=== PATIENT | female | born 1995 | race African-American/Black ===

== ENCOUNTER 2016-09-15 10:04 | Emergency (ER) | payer OTHER ==
[~2016-09-15] VITALS: Ht 167.6 cm; Wt 70.0 kg
[~2016-09-15 10:04] MED LIST: ALBU6.7H INH; BENZ1CAP34 PO
[2016-09-15 10:07] VITALS: BP 119/77; PULSE 94; RESP 20; TEMP 98; O2SAT 100
--- NOTE | 2016-09-15 10:53 | PD ---
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 Patient states that she had the Mirena placed 1 month ago. Her last menstrual cycle ended last week. She states that today after a bowel movement she experienced lower abdominal pain and sharp pains in her vagina. States she is in a monogamous sexual relationship with her . Denies any vaginal discharge or bleeding. No trauma. No nausea, vomiting, or diarrhea. No other symptoms reported this time. PFSH Past Medical History ADHD: No Asthma: Yes Bipolar Disorder: Yes Depression: Yes Cancer: No Cardiovascular Problems: No Diabetes: No Diminished Hearing: No Psychiatric: Yes (BIPOLAR, DEPRESSION) Respiratory: Yes (ASTHMA) Immunizations Current: Yes Migraines: Yes (3X/MOS---GO TO SLEEP) Seizures: No Thyroid Disease: No Ulcer: No LMP: 09/08/16 Menopausal: No : 1 Para: 1 Miscarriage: 0 : 0 Past Surgical History Abdominal Surgery: Yes (ABDOMINAL HERNIA REPAIR) Appendectomy: No Section: Yes Cholecystectomy: No Social History Alcohol Use: No Tobacco Use: No Substance Use: No Allergies-Medications (Allergen,Severity, Reaction): Coded Allergies: Iodine (Verified Allergy, Severe, 09/15/16) Milk (Verified Allergy, Severe, GAS NAUSEA, 09/15/16) Reported Meds & Prescriptions Reported Meds & Active Scripts Active Benzonatate 200 Mg Cap 200 Mg PO TID PRN Reported Proventil Hfa 6.7 GM Inh (Albuterol Sulfate) 90 Mcg/Act Aer 2 Puff INH Q4-6H PRN Review of Systems Except as stated in HPI: all other systems reviewed are Neg Physical Exam Narrative GENERAL: Well-nourished female patient, in no acute distress SKIN: Warm and dry. HEAD: Atraumatic. Normocephalic. EYES: Pupils equal and round. No scleral icterus. No injection or drainage. ENT: No nasal bleeding or discharge. Mucous membranes pink and moist. NECK: Trachea midline. No JVD. CARDIOVASCULAR: Regular rate and rhythm. No murmur appreciated. RESPIRATORY: No accessory muscle use. Clear to auscultation. Breath sounds equal bilaterally. GASTROINTESTINAL: Abdomen soft, nondistended. Suprapubic tenderness to palpation. Hepatic and splenic margins not palpable. MUSCULOSKELETAL: No obvious deformities. No clubbing. No cyanosis. No edema. NEUROLOGICAL: Awake and alert. No obvious cranial nerve deficits. Motor grossly within normal limits. Normal speech. PSYCHIATRIC: Appropriate mood and affect; insight and judgment normal. Data Data Last Documented VS Vital Signs Date Time Temp Pulse Resp B/P Pulse Ox O2 Delivery O2 Flow Rate FiO2 09/15/16 10:07 98.0 94 20 119/77 100 Room Air Orders Urinalysis - C+S If Indicated (09/15/16 10:51) Ed Urine Pregnancytest Poc (09/15/16 10:51) Labs Laboratory Tests Test 09/15/16 10:55 Urine Color YELLOW Urine Turbidity HAZY Urine pH 7.0 Urine Specific [place] 1.025 Urine Protein TRACE mg/dL Urine Glucose (UA) NEG mg/dL Urine Ketones NEG mg/dL Urine Occult Blood TRACE Urine Nitrite NEG Urine Bilirubin NEG Urine Urobilinogen LESS THAN 2.0 MG/DL Urine Leukocyte Esterase SMALL Urine RBC 8 /hpf Urine WBC 4 /hpf Urine Squamous Epithelial 14 /hpf Cells Urine Mucus MOD /lpf Microscopic Urinalysis Comment CULT NOT INDICATED MDM Medical Decision Making Medical Screen Exam Complete: Yes Emergency Medical Condition: Yes Medical Record Reviewed: Yes Differential Diagnosis UTI versus STD versus PID Narrative Course 21-year-old female presents to the emergency department for evaluation of lower pelvic pain. Patient appears overall well and without distress. Workup is initiated in triage. Once a bed becomes available, patient will be transferred and care assumed by that provider Diagnosis Primary Impression: Abdominal pain Disposition: 07 AGAINST MEDICAL ADVICE Condition: Stable Lesly Mejía Sep 15, 2016 10:53
[2016-09-15 11:12] LABS: BLOOD, URINE TRACE (NEG); GLUCOSE,URINE NEG (NEG); KETONE, URINE NEG (NEG); MUCUS URINE MOD /lpf (OCC); NITRITE,URINE NEG (NEG); SQUAMOUS EPITHELIAL CELL URINE 14 /hpf (0-5); URINE COLOR YELLOW (YELLW/STRAW)
[2016-09-15 11:13] LABS: COMMENT (UR) CULT NOT INDICATED; CULTURE IF INDICATED CULT NOT INDICATED
== END 2016-09-15 12:14 | disposition left against medical advice (07) ==
LOC: NETRI 10:04
DX: R10.2 Pelvic and perineal pain (principal); Z97.5 Presence of (intrauterine) contraceptive device
CPT/HCPCS: 81001; 84703; 99283

== ENCOUNTER 2016-09-16 15:38 | Observation (INO) | payer OTHER ==
[~2016-09-16] VITALS: Ht 167.6 cm; Wt 71.0 kg
[2016-09-16 15:41] VITALS: BP 131/87; PULSE 82; RESP 12; TEMP 98.3; O2SAT 99
--- NOTE | 2016-09-16 16:17 | PD ---
HPI Chief Complaint: Abdominal Pain Time Seen by Provider: 16:17 Travel History International Travel<30 days: No Contact w/Intl Traveler<30days: No Traveled to known affect area: No History of Present Illness HPI 21-year-old female presents to emergency department for the second day in a row for evaluation of lower abdominal pain, mostly on the right lower moderate but extends across the lower abdomen. Patient was concerned yesterday that this may have to do with her Mirena. She states it was placed at the end of July and she began having pain yesterday morning. Urine and ultrasound was ordered but patient left AGAINST MEDICAL ADVICE prior to her ultrasound a bit being completed. She went to her DIESEL ENGINE FITTER who states that the Mirena per her report is in place. She then went to [facility] and was told that everything "checked out" but if things worsen to return to the hospital 12 hours. She states she was unable to go back to finish because she had to drop her kids often [place] so she came to [place] today. She states pain has worsened and is greater on the right lower quadrant. Nausea without vomiting. No diarrhea. States she has not had a bowel movement since yesterday. No urinary symptoms. No vaginal discharge or bleeding. No other symptoms to report. PFSH Past Medical History ADHD: No Asthma: Yes Bipolar Disorder: Yes Depression: Yes Cancer: No Cardiovascular Problems: No Diabetes: No Diminished Hearing: No Psychiatric: Yes (BIPOLAR, DEPRESSION) Respiratory: Yes (ASTHMA) Immunizations Current: Yes Migraines: Yes (3X/MOS---GO TO SLEEP) Seizures: No Thyroid Disease: No Ulcer: No ?: Not LMP: 08/29/15 Menopausal: No : 1 Para: 1 Miscarriage: 0 : 0 Past Surgical History Abdominal Surgery: Yes (ABDOMINAL HERNIA REPAIR) Appendectomy: No Section: Yes Cholecystectomy: No Social History Alcohol Use: No Tobacco Use: No Substance Use: No Allergies-Medications (Allergen,Severity, Reaction): Coded Allergies: Iodine (Verified Allergy, Severe, 09/16/16) Milk (Verified Allergy, Severe, GAS NAUSEA, 09/16/16) Reported Meds & Prescriptions Reported Meds & Active Scripts Active Reported Proventil Hfa 6.7 GM Inh (Albuterol Sulfate) 90 Mcg/Act Aer 2 Puff INH Q4-6H PRN Review of Systems Except as stated in HPI: all other systems reviewed are Neg Physical Exam Narrative GENERAL: Well-nourished female patient, in no acute distress SKIN: Warm and dry. HEAD: Atraumatic. Normocephalic. EYES: Pupils equal and round. No scleral icterus. No injection or drainage. ENT: No nasal bleeding or discharge. Mucous membranes pink and moist. NECK: Trachea midline. No JVD. CARDIOVASCULAR: Regular rate and rhythm. No murmur appreciated. RESPIRATORY: No accessory muscle use. Clear to auscultation. Breath sounds equal bilaterally. GASTROINTESTINAL: Abdomen soft, suprapubic and right lower quadrant tenderness to palpation. No rebound tenderness. No guarding. Hepatic and splenic margins not palpable. MUSCULOSKELETAL: No obvious deformities. No clubbing. No cyanosis. No edema. NEUROLOGICAL: Awake and alert. No obvious cranial nerve deficits. Motor grossly within normal limits. Normal speech. PSYCHIATRIC: Appropriate mood and affect; insight and judgment normal. Data Data Last Documented VS Vital Signs Date Time Temp Pulse Resp B/P Pulse Ox O2 Delivery O2 Flow Rate FiO2 09/16/16 17:17 72 17 117/77 100 Room Air 09/16/16 15:41 98.3 Orders Basic Metabolic Panel (Bmp) (09/16/16 16:17) Complete Blood Count With Diff (09/16/16 16:17) Prothrombin Time / Inr (Pt) (09/16/16 16:17) Act Partial Throm Time (Ptt) (09/16/16 16:17) Urinalysis - C+S If Indicated (09/16/16 16:17) Ed Urine Pregnancytest Poc (09/16/16 16:17) Gc And Chlamydia Pcr (09/16/16 16:42) Urine Culture (09/16/16 16:38) Oral Contrast - Adult (09/16/16 17:50) Ct Abd/Pel W/O Iv Contrast (09/16/16 17:56) Diatrizoate Liq ( Gastroview Liq) (09/16/16 18:11) Labs Laboratory Tests Test 09/16/16 16:38 White Blood Count 5.0 TH/MM3 Red Blood Count 3.80 MIL/MM3 Hemoglobin 8.1 GM/DL Hematocrit 26.0 % Mean Corpuscular Volume 68.4 FL Mean Corpuscular Hemoglobin 21.4 PG Mean Corpuscular Hemoglobin 31.4 % Concent Red Cell Distribution Width 18.8 % Platelet Count 524 TH/MM3 Mean Platelet Volume 8.2 FL Neutrophils (%) (Auto) 46.6 % Lymphocytes (%) (Auto) 40.2 % Monocytes (%) (Auto) 10.5 % Eosinophils (%) (Auto) 1.5 % Basophils (%) (Auto) 1.2 % Neutrophils # (Auto) 2.3 TH/MM3 Lymphocytes # (Auto) 2.0 TH/MM3 Monocytes # (Auto) 0.5 TH/MM3 Eosinophils # (Auto) 0.1 TH/MM3 Basophils # (Auto) 0.1 TH/MM3 CBC Comment AUTO DIFF Differential Comment AUTO DIFF CONFIRMED Platelet Estimate HIGH Platelet Morphology Comment NORMAL Prothrombin Time 10.9 SEC Prothromb Time International 1.0 RATIO Ratio Activated Partial 27.9 SEC Thromboplast Time Urine Color YELLOW Urine Turbidity HAZY Urine pH 6.0 Urine Specific [place] 1.021 Urine Protein NEG mg/dL Urine Glucose (UA) NEG mg/dL Urine Ketones 40 mg/dL Urine Occult Blood TRACE Urine Nitrite NEG Urine Bilirubin NEG Urine Urobilinogen LESS THAN 2.0 MG/DL Urine Leukocyte Esterase MOD Urine RBC 1 /hpf Urine WBC 15 /hpf Urine Squamous Epithelial 6 /hpf Cells Microscopic Urinalysis Comment CULTURE INDICATED Sodium Level 142 MEQ/L Potassium Level 3.4 MEQ/L Chloride Level 110 MEQ/L Carbon Dioxide Level 23.1 MEQ/L Anion Gap 9 MEQ/L Blood Urea Nitrogen 13 MG/DL Creatinine 0.66 MG/DL Estimat Glomerular Filtration 136 ML/MIN Rate Random Glucose 75 MG/DL Calcium Level 8.3 MG/DL Chlamydia trachomatis DNA NOT DETECTED (PCR) Neisseria gonorrhoeae DNA NOT DETECTED (PCR) MDM Medical Decision Making Medical Screen Exam Complete: Yes Emergency Medical Condition: Yes Medical Record Reviewed: Yes Differential Diagnosis UTI versus PID versus appendicitis versus colitis Narrative Course 21-year-old female presents to emergency department for evaluation of abdominal pain. Workup was initiated in triage. Once a medical bed becomes available, patient will be transferred and care assumed by that provider. Condition: Stable MejíaLesly ricci SHA Sep 16, 2016 16:17
[2016-09-16 17:00] LABS: AUTOMATED NEUTROPHIL # 2.3 TH/MM3 (1.8-7.7); BASOPHIL # 0.1 TH/MM3 (0-0.2); BASOPHIL % 1.2 % (0.0-2.0); EOSINOPHIL # 0.1 TH/MM3 (0-0.4); EOSINOPHIL % 1.5 % (0.0-4.0); LYMPH % 40.2 % (9.0-44.0); MEAN CELL VOLUME 68.4 FL (80.0-100.0); MEAN CORPUSCULAR HEMOGLOBIN 21.4 PG (27.0-34.0); MEAN CORPUSCULAR HGB CONC 31.4 % (32.0-36.0); MONO % 10.5 % (0.0-8.0); NEUT % 46.6 % (16.0-70.0); PLATELET COUNT 524 TH/MM3 (150-450); RED CELL DISTRIBUTION WIDTH 18.8 % (11.6-17.2)
[2016-09-16 17:01] LABS: HEMO FLAGS AUTO DIFF
[2016-09-16 17:04] LABS: BLOOD, URINE TRACE (NEG); COMMENT (UR) CULTURE INDICATED; CULTURE IF INDICATED CULTURE INDICATED; GLUCOSE,URINE NEG (NEG); KETONE, URINE 40 mg/dL (NEG); NITRITE,URINE NEG (NEG); SQUAMOUS EPITHELIAL CELL URINE 6 /hpf (0-5); URINE COLOR YELLOW (YELLW/STRAW)
[2016-09-16 17:10] LABS: APTT (PATIENT) 27.9 SEC (24.3-30.1); PROTHROMBIN TIME - PATIENT 10.9 SEC (9.8-11.6)
[2016-09-16 17:17] VITALS: BP 117/77; PULSE 72; RESP 17; O2SAT 100
[2016-09-16 17:21] LABS: BICARBONATE 23.1 MEQ/L (21.0-32.0); POTASSIUM 3.4 MEQ/L (3.5-5.1)
[2016-09-16 17:35] LABS: PLATELET ESTIMATE SMEAR HIGH (NORMAL); PLATELET MORPHOLOGY NORMAL (NORMAL); SCAN/DIFF AUTO DIFF CONFIRMED
--- NOTE | 2016-09-16 17:39 | PD ---
HPI Chief Complaint: Abdominal Pain Time Seen by Provider: 17:17 Travel History International Travel<30 days: No Contact w/Intl Traveler<30days: No Traveled to known affect area: No History of Present Illness HPI 21-year-old female complains of right low quadrant abdominal pain. Patient states that the pain started yesterday after a bowel movement. Patient states the pain is stabbing pain when standing and dental pain when she lying down. Patient states the pain has been persistent since yesterday. Patient was seen at the emergency room yesterday. UA was done and was negative. Patient left AMA. Patient was seen by her park maintenance technician yesterday and was advised that the pain does not come from the pelvic problem. Patient was seen at [facility] emergency room in [place] yesterday and has CT scan of the abdomen and pelvis done. The CT abdomen and pelvis was negative. Patient was advised to return in 12 hours for recheck and repeat CT if necessary. Patient's unable to go to [facility] today and came to [place] instead. Patient states the pain is localized to the right quadrant of the abdomen. Patient also states that she has some mild pain around the periumbilical area. Patient denies any pain radiation. Patient denies any fever chills. Patient Has nausea but no vomiting. Patient denies any dysuria or frequency. Patient denies any vaginal discharge or bleeding. On a scale of 1-10 the pain is a 7. PFSH Past Medical History ADHD: No Asthma: Yes Bipolar Disorder: Yes Depression: Yes Cancer: No Cardiovascular Problems: No Diabetes: No Diminished Hearing: No Psychiatric: Yes (BIPOLAR, DEPRESSION) Respiratory: Yes (ASTHMA) Immunizations Current: Yes Migraines: Yes (3X/MOS---GO TO SLEEP) Seizures: No Thyroid Disease: No Ulcer: No Tetanus Vaccination: Unknown Influenza Vaccination: No ?: Not LMP: 08/29/16 Menopausal: No : 3 Para: 3 Miscarriage: 1 : 0 Past Surgical History Abdominal Surgery: Yes (ABDOMINAL HERNIA REPAIR) Appendectomy: No Section: Yes (X1) Cholecystectomy: No Social History Alcohol Use: No (EVERY OTHER WEEKEND) Tobacco Use: No Substance Use: No Allergies-Medications (Allergen,Severity, Reaction): Coded Allergies: Iodine (Verified Allergy, Severe, 09/16/16) Milk (Verified Allergy, Severe, GAS NAUSEA, 09/16/16) Reported Meds & Prescriptions Reported Meds & Active Scripts Active Reported Proventil Hfa 6.7 GM Inh (Albuterol Sulfate) 90 Mcg/Act Aer 2 Puff INH Q4-6H PRN Review of Systems General / Constitutional: No: Fever Eyes: No: Visual changes HENT: No: Headaches Cardiovascular: No: Chest Pain or Discomfort Respiratory: No: Shortness of Breath Gastrointestinal: Positive: Nausea, Abdominal Pain Genitourinary: No: Dysuria Musculoskeletal: No: Pain Skin: No Rash Neurologic: No: Weakness Psychiatric: No: Depression Endocrine: No: Polydipsia Hematologic/Lymphatic: No: Easy Bruising Physical Exam Narrative GENERAL: Well-nourished, well-developed patient. SKIN: Warm and dry. HEAD: Normocephalic. EYES: No scleral icterus. No injection or drainage. NECK: Supple, trachea midline. No JVD or lymphadenopathy. CARDIOVASCULAR: Regular rate and rhythm without murmurs, gallops, or rubs. RESPIRATORY: Breath sounds equal bilaterally. No accessory muscle use. GASTROINTESTINAL: Abdomen soft, nondistended. Patient has moderate tenderness periumbilical area and right low quadrant of the abdomen. No rebound tenderness. No mass. MUSCULOSKELETAL: No cyanosis, or edema. BACK: Nontender without obvious deformity. No CVA tenderness. Data Data Last Documented VS Vital Signs Date Time Temp Pulse Resp B/P Pulse Ox O2 Delivery O2 Flow Rate FiO2 09/16/16 20:01 76 16 127/84 100 Room Air 09/16/16 15:41 98.3 Orders Basic Metabolic Panel (Bmp) (09/16/16 16:17) Complete Blood Count With Diff (09/16/16 16:17) Prothrombin Time / Inr (Pt) (09/16/16 16:17) Act Partial Throm Time (Ptt) (09/16/16 16:17) Urinalysis - C+S If Indicated (09/16/16 16:17) Ed Urine Pregnancytest Poc (09/16/16 16:17) Gc And Chlamydia Pcr (09/16/16 16:42) Urine Culture (09/16/16 16:38) Oral Contrast - Adult (09/16/16 17:50) Ct Abd/Pel W/O Iv Contrast (09/16/16 17:56) Diatrizoate Liq ( Gastroview Liq) (09/16/16 18:11) Morphine Inj (Morphine Inj) (09/16/16 20:15) Ondansetron Inj (Zofran Inj) (09/16/16 20:15) Labs Laboratory Tests Test 09/16/16 16:38 White Blood Count 5.0 TH/MM3 Red Blood Count 3.80 MIL/MM3 Hemoglobin 8.1 GM/DL Hematocrit 26.0 % Mean Corpuscular Volume 68.4 FL Mean Corpuscular Hemoglobin 21.4 PG Mean Corpuscular Hemoglobin 31.4 % Concent Red Cell Distribution Width 18.8 % Platelet Count 524 TH/MM3 Mean Platelet Volume 8.2 FL Neutrophils (%) (Auto) 46.6 % Lymphocytes (%) (Auto) 40.2 % Monocytes (%) (Auto) 10.5 % Eosinophils (%) (Auto) 1.5 % Basophils (%) (Auto) 1.2 % Neutrophils # (Auto) 2.3 TH/MM3 Lymphocytes # (Auto) 2.0 TH/MM3 Monocytes # (Auto) 0.5 TH/MM3 Eosinophils # (Auto) 0.1 TH/MM3 Basophils # (Auto) 0.1 TH/MM3 CBC Comment AUTO DIFF Differential Comment AUTO DIFF CONFIRMED Platelet Estimate HIGH Platelet Morphology Comment NORMAL Prothrombin Time 10.9 SEC Prothromb Time International 1.0 RATIO Ratio Activated Partial 27.9 SEC Thromboplast Time Urine Color YELLOW Urine Turbidity HAZY Urine pH 6.0 Urine Specific [place] 1.021 Urine Protein NEG mg/dL Urine Glucose (UA) NEG mg/dL Urine Ketones 40 mg/dL Urine Occult Blood TRACE Urine Nitrite NEG Urine Bilirubin NEG Urine Urobilinogen LESS THAN 2.0 MG/DL Urine Leukocyte Esterase MOD Urine RBC 1 /hpf Urine WBC 15 /hpf Urine Squamous Epithelial 6 /hpf Cells Microscopic Urinalysis Comment CULTURE INDICATED Sodium Level 142 MEQ/L Potassium Level 3.4 MEQ/L Chloride Level 110 MEQ/L Carbon Dioxide Level 23.1 MEQ/L Anion Gap 9 MEQ/L Blood Urea Nitrogen 13 MG/DL Creatinine 0.66 MG/DL Estimat Glomerular Filtration 136 ML/MIN Rate Random Glucose 75 MG/DL Calcium Level 8.3 MG/DL Chlamydia trachomatis DNA NOT DETECTED (PCR) Neisseria gonorrhoeae DNA NOT DETECTED (PCR) MDM Medical Decision Making Medical Screen Exam Complete: Yes Emergency Medical Condition: Yes Interpretation(s) Last Impressions Abdomen/Pelvis CT 09/16/16 2042 Signed Impressions: Service Date/Time: Friday, September 16, 2016 19:35 - CONCLUSION: 1. Small amount of free fluid in the cul-de-sac. 2. IUD. 3. Unable to visualize the appendix. Art Agrawal Jr., MD 2054 PM. CBC WBC 5.0. Hemoglobin 8.1 hematocrit 26.0. MCV 60.4. Potassium 3.4. UA positive for WBC. GC chlamydia PCR negative. Differential Diagnosis Differential diagnosis including UTI, pyelonephritis, nephrolithiasis, colitis, appendicitis, ovarian cyst, ovarian torsion, ruptured ovarian cyst. Narrative Course 21-year-old female with periumbilical and right lower quadrant abdominal pain. Diagnosis Primary Impression: Abdominal pain Qualified Code: R10.31 - Right lower quadrant abdominal pain Additional Impression: UTI (urinary tract infection) Qualified Code: N30.00 - Acute cystitis without hematuria Shaan Ferrera MD Sep 16, 2016 17:39
[2016-09-16] MEDS ORDERED: DIATRIZOATE MEGLUM/DIATRIZOATE SOD 9 ML CUP ONE (18:11)
[2016-09-16 19:32] LABS: CHLAMYDIA PCR NOT DETECTED (NOT DETECT); NEISSERIA PCR NOT DETECTED (NOT DETECT)
[2016-09-16 20:01] VITALS: BP 127/84; PULSE 76; RESP 16; O2SAT 100
--- NOTE | 2016-09-16 20:12 | RADRPT ---
EXAM DATE/TIME: 09/16/2016 19:35 [facility] COMPARISON: No previous studies available for comparison. INDICATIONS : Right lower qaudrant pain. ORAL CONTRAST: Partial prescribed oral contrast ingested. RADIATION DOSE: 5.10 CTDIvol (mGy) MEDICAL HISTORY : Asthma SURGICAL HISTORY : section. Hernia ENCOUNTER: Initial ACUITY: 1 day PAIN SCALE: 6/10 LOCATION: Right lower quadrant TECHNIQUE: Volumetric scanning of the abdomen and pelvis was performed. Using automated exposure control and ad justment of the mA and/or kV according to patient size, radiation dose was kept as low as reasonably achievable to obtain optimal diagnostic quality images. FINDINGS: LOWER LUNGS: The visualized lower lungs are clear. LIVER: Homogeneous density without lesion. There is no dilation of the biliary tree. No calcified gallston es. SPLEEN: Normal size without lesion. PANCREAS: Within normal limits. KIDNEYS: Normal in size and shape. There is no mass, stone, or hydronephrosis. ADRENAL GLANDS: Within normal limits. VASCULAR: There is no aortic aneurysm. BOWEL/MESENTERY: The stomach, small bowel, and colon demonstrate no acute abnormality. There is no free intraperitone al air or fluid. Unable to identify the appendix. ABDOMINAL WALL: Within normal limits. RETROPERITONEUM: There is no lymphadenopathy. BLADDER: No wall thickening or mass. REPRODUCTIVE: An IUD is noted. A small amount of free fluid noted within the cul-de-sac. INGUINAL: There is no lymphadenopathy or hernia. MUSCULOSKELETAL: Within normal limits for patient age. CONCLUSION: 1. Small amount of free fluid in the cul-de-sac. 2. IUD. 3. Unable to visualize the appendix. Art Agrawal Jr., MD on September 16, 2016 at 20:09 Board Certified Radiologist. This report was verified electronically.
[2016-09-16] MEDS ORDERED: ONDANSETRON HCL 4 MG/2 ML VIAL IV PUSH ONE (20:15)
[2016-09-16] MEDS ORDERED: MORPHINE SULFATE 4 MG/ML INJ IV PUSH ONE (20:15)
[2016-09-16] MEDS ORDERED: NALOXONE HCL 0.4 MG/ML AMP IV PRN (21:15)
[2016-09-16] MEDS ORDERED: cefTRIAXone INJ 1,000 MG in SODIUM CHLORIDE 0.9% INJ 100 ML IV ONE (21:15)
[2016-09-16] MEDS ORDERED: SODIUM CHLORIDE 0.9% FLUSH 5 ML FLUSH FLUSH PRN (21:15)
[2016-09-16] MEDS: SODIUM CHLOR 0.9% 1000 ML INJ 1,000 ML IV SCH (21:37)
[2016-09-17 01:35] VITALS: BP 122/76; PULSE 74; RESP 16; O2SAT 99
[2016-09-17 03:30] VITALS: BP 130/74; PULSE 70; RESP 14; O2SAT 100
[2016-09-17] MEDS: MORPHINE SULFATE 4 MG/ML INJ IV PUSH PRN ×4 (03:52→22:19)
[2016-09-17 04:07] LABS: AUTOMATED NEUTROPHIL # 1.8 TH/MM3 (1.8-7.7); BASOPHIL % 1.1 % (0.0-2.0); EOSINOPHIL # 0.1 TH/MM3 (0-0.4); HEMATOCRIT 25.8 % (35.0-46.0); LYMPH % 44.2 % (9.0-44.0); MEAN CELL VOLUME 67.6 FL (80.0-100.0); MONO % 11.9 % (0.0-8.0); NEUT % 40.8 % (16.0-70.0); PLATELET COUNT 490 TH/MM3 (150-450); RED BLOOD COUNT 3.81 MIL/MM3 (4.00-5.30); WHITE BLOOD COUNT 4.5 TH/MM3 (4.0-11.0)
[2016-09-17 04:14] LABS: HEMO FLAGS AUTO DIFF
[2016-09-17 04:38] LABS: BICARBONATE 22.5 MEQ/L (21.0-32.0); POTASSIUM 3.6 MEQ/L (3.5-5.1)
[2016-09-17 06:55] LABS: PLATELET ESTIMATE SMEAR HIGH (NORMAL); PLATELET MORPHOLOGY NORMAL (NORMAL); SCAN/DIFF AUTO DIFF CONFIRMED
[2016-09-17 06:56] LABS: KERATOCYTES OCC (NORMAL)
[2016-09-17 08:47] VITALS: BP 108/55; PULSE 85; RESP 16; TEMP 98.3; O2SAT 100
[2016-09-17] MEDS: SODIUM CHLOR 0.9% 1000 ML INJ 1,000 ML IV SCH ×2 (08:47→17:59)
[2016-09-17] MEDS: SODIUM CHLORIDE 0.9% FLUSH 5 ML FLUSH FLUSH SCH ×2 (08:47→21:32)
--- NOTE | 2016-09-17 11:41 | HHI.HP ---
[facility]Staff Admission Diagnosis right low quadrant abdominal pain. UTI. Diagnoses: Chief Complaint: abdominal pain Travel History International Travel<30 Days: No Contact w/Intl Traveler <30 Da: No Traveled to Known Affected Are: No History of Present Illness 21-year-old female with history of asthma, bipolar, depression, migraines, presents with a 2 day history of abdominal pain. Patient reports on Thursday she had a BM described has formed but somewhat hard, brown stool, then immediately after felt diffuse lower abdominal cramping that was not consistent with her menstrual cycle cramps. LMP 08/29. Denies any vaginal bleeding/ discharge. She took ibuprofen however this did not relieve the pain therefore she presented to the ER on 09/15, workup was initiated however she LWBS due to the long wait. She then went to her OBGYN who checked her Mirena and told her everything looked normal. She then went to [facility] later that evening on 09/15 because the pain got worse and started to radiate to the right lower quadrant. She was sent home from [facility] at 2am on 09/16 under instructions to return to the ED if the pain does not resolve over the next 12 hours as she may have "early appendicitis". The pain continued, described as constant intense cramping with occasional sharp pains rated 7/10, much worse with ambulation, associated with poor appetite, some nausea but no vomiting, therefore she presented back to the ED last night 09/16. She denies any fevers or chills. Upon arrival, CT abd/pelvis showed small amount of free fluid in the cul-de-sac; unable to visualize the appendix. GC/Chlamydia PCRs negative. UA with moderate leuks, possible UTI, however the patient denies any dysuria, increased urinary frequency/urgency. CBC with anemia, Hgb 8.1, no leukocytosis. The patient was admitted with surgical consultation pending. Review of Systems Constitutional: COMPLAINS OF: Change in appetite, DENIES: Diaphoretic episodes , Fever, Chills, Dizziness Endocrine: DENIES: Polydipsia, Polyuria, Polyphagia Eyes: DENIES: Blurred vision, Vision loss, Double Vision Ears, nose, mouth, throat: DENIES: Throat pain, Running Nose, Odynophagia Respiratory: DENIES: Cough, Shortness of breath Cardiovascular: DENIES: Chest pain, Palpitations, Syncope Gastrointestinal: COMPLAINS OF: Abdominal pain, Nausea, DENIES: Black stools, Bloody stools, Constipation, Diarrhea, Vomiting Genitourinary: DENIES: Urinary frequency, Urgency, Dysuria Musculoskeletal: DENIES: Back pain, Neck pain Integumentary: DENIES: Abnormal pigmentation, Pruritus, Rash Hematologic/lymphatic: DENIES: Bruising, Lymphadenopathy Immunologic/allergic: DENIES: Eczema, Urticaria Neurologic: DENIES: Abnormal gait, Headache, Localized weakness Psychiatric: DENIES: Anxiety, Depression Past Family Social History Past Medical History asthma bipolar depression migraines Past Surgical History Abdominal hernia repair Reported Medications Albuterol inhaler prn Allergies: Coded Allergies: Iodine (Verified Allergy, Severe, 09/16/16) Milk (Verified Allergy, Severe, GAS NAUSEA, 09/16/16) Active Ordered Medications Current Medications Medications (Trade) Dose Ordered Sig/Francine Route Start Time Stop Time Status Last Admin (NS 1000 ml Inj) 1,000 ml @ 100 mls/hr Q10H IV 09/16/16 21:15 09/17/16 08:47 (NS Flush) 2 ml UNSCH PRN FLUSH 09/16/16 21:15 (NS Flush) 2 ml BID FLUSH 09/17/16 09:00 (Zofran Inj) 4 mg Q6H PRN IVP 09/16/16 21:15 (Narcan Inj) 0.4 mg UNSCH PRN IV 09/16/16 21:15 (Morphine Inj) 2 mg Q6HR PRN IV PUSH 09/16/16 21:15 09/17/16 10:02 Family History Mother with asthma Unknown father history, abusive, likely psych issues per the patient Social History Denies any tobacco or illicit drug use. Occasional alcohol use, maybe every other weekend Physical Exam Vital Signs Vital Signs Date Time Temp Pulse Resp B/P Pulse Ox O2 Delivery O2 Flow Rate FiO2 09/17/16 08:47 98.3 85 16 108/55 100 09/17/16 03:30 70 14 130/74 100 Room Air 09/17/16 01:35 74 16 122/76 99 Room Air 09/16/16 20:01 76 16 127/84 100 Room Air 09/16/16 17:17 72 17 117/77 100 Room Air 09/16/16 17:17 18 09/16/16 15:41 98.3 82 12 131/87 99 Room Air Physical Exam GENERAL: Well-nourished, well-developed middle aged AA female patient in [facility]. SKIN: Warm and dry. No rash. HEAD: Normocephalic. Atraumatic. EYES: Pupils equal and round. No scleral icterus. No injection or drainage. ENT: No nasal bleeding or discharge. Mucous membranes pink and moist. NECK: Supple. Trachea midline. No JVD. CARDIOVASCULAR: Regular rate and rhythm. S1, S2 noted. No murmur appreciated. RESPIRATORY: No accessory muscle use. Clear to auscultation. Breath sounds equal bilaterally. GASTROINTESTINAL: Abdomen soft, nondistended. TTP at RLQ and periumbilical, without rebound or guarding. Normoactive bowel sounds x4. MUSCULOSKELETAL: No obvious deformities. Extremities without clubbing, cyanosis , or edema. NEUROLOGICAL: Awake and alert. No obvious cranial nerve deficits. Motor grossly within normal limits. Normal speech. PSYCHIATRIC: Appropriate mood and affect; insight and judgment normal. Laboratory Laboratory Tests Test 09/16/16 09/17/16 16:38 03:39 White Blood Count 5.0 4.5 Red Blood Count 3.80 3.81 Hemoglobin 8.1 8.0 Hematocrit 26.0 25.8 Mean Corpuscular Volume 68.4 67.6 Mean Corpuscular Hemoglobin 21.4 21.0 Mean Corpuscular Hemoglobin 31.4 31.0 Concent Red Cell Distribution Width 18.8 19.0 Platelet Count 524 490 Mean Platelet Volume 8.2 8.1 Neutrophils (%) (Auto) 46.6 40.8 Lymphocytes (%) (Auto) 40.2 44.2 Monocytes (%) (Auto) 10.5 11.9 Eosinophils (%) (Auto) 1.5 2.0 Basophils (%) (Auto) 1.2 1.1 Neutrophils # (Auto) 2.3 1.8 Lymphocytes # (Auto) 2.0 2.0 Monocytes # (Auto) 0.5 0.5 Eosinophils # (Auto) 0.1 0.1 Basophils # (Auto) 0.1 0.0 CBC Comment AUTO DIFF AUTO DIFF Differential Comment AUTO DIFF AUTO DIFF CONFIRMED CONFIRMED Platelet Estimate HIGH HIGH Platelet Morphology Comment NORMAL NORMAL Prothrombin Time 10.9 Prothromb Time International 1.0 Ratio Activated Partial 27.9 Thromboplast Time Urine Color YELLOW Urine Turbidity HAZY Urine pH 6.0 Urine Specific [place] 1.021 Urine Protein NEG Urine Glucose (UA) NEG Urine Ketones 40 Urine Occult Blood TRACE Urine Nitrite NEG Urine Bilirubin NEG Urine Urobilinogen LESS THAN 2.0 Urine Leukocyte Esterase MOD Urine RBC 1 Urine WBC 15 Urine Squamous Epithelial 6 Cells Microscopic Urinalysis Comment CULTURE INDICATED Sodium Level 142 140 Potassium Level 3.4 3.6 Chloride Level 110 110 Carbon Dioxide Level 23.1 22.5 Anion Gap 9 8 Blood Urea Nitrogen 13 12 Creatinine 0.66 0.63 Estimat Glomerular Filtration 136 143 Rate Random Glucose 75 64 Calcium Level 8.3 7.9 Chlamydia trachomatis DNA NOT DETECTED (PCR) Neisseria gonorrhoeae DNA NOT DETECTED (PCR) Keratocytes OCC Date/Time Procedure Status Source Growth 09/16/16 16:38 Urine Culture Worksheet Urine Clean Catch Pending Result Diagram: 09/17/16 0339 09/17/16 0339 Imaging Last Impressions Abdomen/Pelvis CT 09/16/16 1756 Signed Impressions: Service Date/Time: Friday, September 16, 2016 19:35 - CONCLUSION: 1. Small amount of free fluid in the cul-de-sac. 2. IUD. 3. Unable to visualize the appendix. Art Agrawal Jr., MD Assessment and Plan Assessment and Plan 21-year-old female with history of asthma, bipolar, depression, migraines, presents with a 2 day history of abdominal pain. Abdominal Pain: CT abd/pelvis showed small amount of free fluid in the cul-de- sac; unable to visualize the appendix. GC/Chlamydia PCRs negative, and recent IUD check by patient's OBGYN was unremarkable. CBC with anemia, Hgb 8.1, no leukocytosis. Supportive treatment with IVF, Zofran prn, IV Morphine prn pain. Keep NPO. General surgery consulted. Possible UTI: UA with moderate leuks, possible UTI, however the patient denies any urinary symptoms. Continue with IV Rocephin. Monitor urine culture. Microcytic Anemia: patient has history of anemia on previous visits however baseline around 10, currently Hgb 8.0. Check iron studies. Monitor CBC. Asthma: chronic, does not appear to be in exacerbation. Continue albuterol inhaler prn. DVT Prophylaxis: teds/SCDs Written by Vero Biswas, acting as scribe for Dr. Connell on 09/17/16 at 09:10. The documentation accurately reflects the work performed [id number] by me Dr. Connell on 09/17/16 at 09:10. Discussed Condition With Patient Vero Biswas PA-C Sep 17, 2016 11:41 Kat Connell MD Sep 17, 2016 19:08
[2016-09-17] MEDS ORDERED: ALBUTEROL SULFATE 90 MCG/ACT HFA 8 GM INHALER INH PRN (11:45)
[2016-09-17 12:00] VITALS: BP 103/58; PULSE 89; RESP 16; TEMP 98.4; O2SAT 100
[2016-09-17 12:43] LABS: TRANSFERRIN IRON PROFILE 330 MG/DL (200-360)
--- NOTE | 2016-09-17 15:58 | PD.CONS ---
cc: Luiz Manning MD [facility] Service General Surgery Consult Requested By Dr. Prescott Reason for Consult Abdominal pain Primary Care Physician Non-Staff History of Present Illness This is a 21 year old female who had an IUD placed approximately one month ago. She developed abdominal pain on Thursday night after having a [employer] chicken wrap and sweet sea. She denies nausea and vomiting. She went to [facility] where she was instructed to follow up with her PCP and Gynecology for evaluation of her IUD. She did see her Ream Cutter on Thursday who does not think the pain is from the IUD placement. The pain did not get back and she came to [place] that evening. She had a CT abdomen and pelvis which was normal. Her labs were unremarkable. She left AMA. She came back Thursday because the pain was not better. She is not able to associate the pain with any food intolerance. She has never had pain like this before. She states her LMP was Aug 29, but of note, lasted approximately two weeks which is unusual for her. Review of Systems Constitutional: DENIES: Fatigue, Fever, Weight gain, Weight loss Endocrine: DENIES: Heat/cold intolerance, Polydipsia, Polyuria, Polyphagia Eyes: DENIES: Diplopia, Eye inflammation Ears, nose, mouth, throat: DENIES: Hearing loss, Vertigo, Nasal discharge Respiratory: DENIES: Cough, Snoring Cardiovascular: DENIES: Chest pain, Palpitations, Syncope Gastrointestinal: COMPLAINS OF: Abdominal pain (RLQ), DENIES: Nausea, Vomiting Genitourinary: DENIES: Dyspareunia, Urinary frequency, Urinary incontinence Integumentary: DENIES: Abnormal pigmentation Hematologic/lymphatic: DENIES: Bruising Immunologic/allergic: DENIES: Eczema Neurologic: DENIES: Abnormal gait, Headache Psychiatric: DENIES: Confusion, Mood changes, Depression Past Family Social History Past Medical History Asthma Bipolar Depression Past Surgical History Umbilical hernia repair (age 4) (age 20) Reported Medications Albuterol inhaler Allergies: Coded Allergies: Iodine (Verified Allergy, Severe, 09/16/16) Milk (Verified Allergy, Severe, GAS NAUSEA, 09/16/16) Active Ordered Medications Current Medications Medications (Trade) Dose Ordered Sig/Francine Route Start Time Stop Time Status Last Admin (NS 1000 ml Inj) 1,000 ml @ 100 mls/hr Q10H IV 09/16/16 21:15 09/17/16 08:47 (NS Flush) 2 ml UNSCH PRN FLUSH 09/16/16 21:15 (NS Flush) 2 ml BID FLUSH 09/17/16 09:00 (Zofran Inj) 4 mg Q6H PRN IVP 09/16/16 21:15 (Narcan Inj) 0.4 mg UNSCH PRN IV 09/16/16 21:15 Morphine Sulfate 2 mg 2 mg Q6HR PRN IV PUSH 09/16/16 21:15 09/17/16 10:02 (Rocephin Inj/NS Inj) 100 ml @ 200 mls/hr Q24H IV 09/17/16 21:00 (Proair Hfa Inh) 2 puff Q4H PRN INH 09/17/16 11:45 Family History Non-contributory Social History Denies smoking and illicit drug use ETOH use only occasionally Physical Exam Vital Signs Vital Signs Date Time Temp Pulse Resp B/P Pulse Ox O2 Delivery O2 Flow Rate FiO2 09/17/16 12:00 98.4 89 16 103/58 100 09/17/16 08:47 98.3 85 16 108/55 100 09/17/16 03:30 70 14 130/74 100 Room Air 09/17/16 01:35 74 16 122/76 99 Room Air 09/16/16 20:01 76 16 127/84 100 Room Air 09/16/16 17:17 72 17 117/77 100 Room Air 09/16/16 17:17 18 Physical Exam GENERAL: Young 21 year old female resting in bed in no acute distress SKIN: Warm and dry. HEAD: Atraumatic. Normocephalic. EYES: Pupils equal and round. No scleral icterus. No injection or drainage. ENT: No nasal bleeding or discharge. Mucous membranes pink and moist. NECK: Trachea midline. CARDIOVASCULAR: Regular rate and rhythm. RESPIRATORY: No accessory muscle use. Clear to auscultation. Breath sounds equal bilaterally. GASTROINTESTINAL: Abdomen soft, tender to palpation in RLQ that radiates at times across abdomen to LLQ. MUSCULOSKELETAL: Extremities without clubbing, cyanosis, or edema. No obvious deformities. NEUROLOGICAL: Awake and alert. No obvious cranial nerve deficits. Motor grossly within normal limits. Five out of 5 muscle strength in the arms and legs. Normal speech. PSYCHIATRIC: Appropriate mood and affect; insight and judgment normal. Laboratory Laboratory Tests Test 09/16/16 09/17/16 16:38 03:39 White Blood Count 5.0 4.5 Red Blood Count 3.80 3.81 Hemoglobin 8.1 8.0 Hematocrit 26.0 25.8 Mean Corpuscular Volume 68.4 67.6 Mean Corpuscular Hemoglobin 21.4 21.0 Mean Corpuscular Hemoglobin 31.4 31.0 Concent Red Cell Distribution Width 18.8 19.0 Platelet Count 524 490 Mean Platelet Volume 8.2 8.1 Neutrophils (%) (Auto) 46.6 40.8 Lymphocytes (%) (Auto) 40.2 44.2 Monocytes (%) (Auto) 10.5 11.9 Eosinophils (%) (Auto) 1.5 2.0 Basophils (%) (Auto) 1.2 1.1 Neutrophils # (Auto) 2.3 1.8 Lymphocytes # (Auto) 2.0 2.0 Monocytes # (Auto) 0.5 0.5 Eosinophils # (Auto) 0.1 0.1 Basophils # (Auto) 0.1 0.0 CBC Comment AUTO DIFF AUTO DIFF Differential Comment AUTO DIFF AUTO DIFF CONFIRMED CONFIRMED Platelet Estimate HIGH HIGH Platelet Morphology Comment NORMAL NORMAL Prothrombin Time 10.9 Prothromb Time International 1.0 Ratio Activated Partial 27.9 Thromboplast Time Urine Color YELLOW Urine Turbidity HAZY Urine pH 6.0 Urine Specific [place] 1.021 Urine Protein NEG Urine Glucose (UA) NEG Urine Ketones 40 Urine Occult Blood TRACE Urine Nitrite NEG Urine Bilirubin NEG Urine Urobilinogen LESS THAN 2.0 Urine Leukocyte Esterase MOD Urine RBC 1 Urine WBC 15 Urine Squamous Epithelial 6 Cells Microscopic Urinalysis Comment CULTURE INDICATED Sodium Level 142 140 Potassium Level 3.4 3.6 Chloride Level 110 110 Carbon Dioxide Level 23.1 22.5 Anion Gap 9 8 Blood Urea Nitrogen 13 12 Creatinine 0.66 0.63 Estimat Glomerular Filtration 136 143 Rate Random Glucose 75 64 Calcium Level 8.3 7.9 Chlamydia trachomatis DNA NOT DETECTED (PCR) Neisseria gonorrhoeae DNA NOT DETECTED (PCR) Keratocytes OCC Iron Level 43 Total Iron Binding Capacity 462 Percent Iron Saturation 9.3 Date/Time Procedure Status Source Growth 09/16/16 16:38 Urine Culture - Preliminary Resulted Urine Clean Catch 50-100,000 CFU/ML MIXED GRAM POSITIVE... Result Diagram: 09/17/16 0339 09/17/16 0339 Imaging Last 48 hours Impressions Abdomen/Pelvis CT 09/16/16 1756 Signed Impressions: Service Date/Time: Friday, September 16, 2016 19:35 - CONCLUSION: 1. Small amount of free fluid in the cul-de-sac. 2. IUD. 3. Unable to visualize the appendix. Art Agrawal Jr., MD Assessment and Plan Assessment and Plan 21 year old female with abdominal pain on unknown etiology -CT abdomen/pelvis does not reveal any acute findings -WBC normal -Continue IVF -No indication at this time for antibiotic -Dr. Manning to review scan Attending Note - Dr. Manning Patient seen and examined Abdomen tender RLQ, but entire right side. Patient states it is worse today. Nausea, but no emesis today. No general surgical dz at present; Suggest GI input. Will follow. The exam, history, and the medical decision-making described in the above note were completed with the assistance of the mid-level provider. I reviewed and agree with the findings presented. I attest that I had a [id number] encounter with the patient on the same day, and personally performed and documented my assessment and findings in the medical record. Discussed Condition With Jojo Vasques Dr. Sep 17, 2016 15:58 Luiz Manning MD Sep 17, 2016 22:16
[2016-09-17 19:22] VITALS: BP 94/53; PULSE 75; RESP 18; TEMP 98.1; O2SAT 96
[2016-09-17] MEDS: cefTRIAXone INJ 1,000 MG in SODIUM CHLORIDE 0.9% INJ 100 ML IV SCH (21:32)
[2016-09-17] MEDS: ONDANSETRON HCL 4 MG/2 ML VIAL IVP PRN (23:00)
[2016-09-18] MEDS: SODIUM CHLOR 0.9% 1000 ML INJ 1,000 ML IV SCH (04:03)
[2016-09-18 04:53] VITALS: BP 119/84; PULSE 84; RESP 18; TEMP 97.8; O2SAT 96
[2016-09-18] MEDS: MORPHINE SULFATE 4 MG/ML INJ IV PUSH PRN ×2 (06:23→08:59)
[2016-09-18 07:51] LABS: AUTOMATED NEUTROPHIL # 2.3 TH/MM3 (1.8-7.7); BASOPHIL # 0.1 TH/MM3 (0-0.2); BASOPHIL % 1.2 % (0.0-2.0); EOSINOPHIL # 0.1 TH/MM3 (0-0.4); EOSINOPHIL % 1.2 % (0.0-4.0); HEMATOCRIT 25.6 % (35.0-46.0); LYMPH % 36.5 % (9.0-44.0); LYMPHOCYTE # 1.7 TH/MM3 (1.0-4.8); MEAN CELL VOLUME 69.3 FL (80.0-100.0); MEAN CORPUSCULAR HEMOGLOBIN 21.2 PG (27.0-34.0); MEAN CORPUSCULAR HGB CONC 30.6 % (32.0-36.0); MONO % 12.6 % (0.0-8.0); NEUT % 48.5 % (16.0-70.0); PLATELET COUNT 510 TH/MM3 (150-450); RED BLOOD COUNT 3.69 MIL/MM3 (4.00-5.30); RED CELL DISTRIBUTION WIDTH 19.2 % (11.6-17.2); WHITE BLOOD COUNT 4.7 TH/MM3 (4.0-11.0)
[2016-09-18 07:53] LABS: HEMO FLAGS AUTO DIFF
[2016-09-18 08:13] VITALS: BP 110/63; PULSE 80; RESP 18; TEMP 99; O2SAT 99
[2016-09-18 08:29] LABS: ALKALINE PHOSPHATASE 35 U/L (45-117); ALT (GPT) 10 U/L (10-53); ANION GAP 13 MEQ/L (5-15); AST (GOT) 8 U/L (15-37); BICARBONATE 15.3 MEQ/L (21.0-32.0); BLOOD UREA NITROGEN 6 MG/DL (7-18); CHLORIDE 110 MEQ/L (98-107); GLOMERULAR FILTRATION RATE 146 ML/MIN (>89); POTASSIUM 4.1 MEQ/L (3.5-5.1); SODIUM (NA) 138 MEQ/L (136-145); TOTAL BILIRUBIN ADULT 0.5 MG/DL (0.2-1.0)
[2016-09-18] MEDS ORDERED: ACETAMINOPHEN/HYDROcodone 325 MG/5 MG TAB PO PRN (08:30)
[2016-09-18 08:33] LABS: KERATOCYTES OCC (NORMAL); PLATELET ESTIMATE SMEAR HIGH (NORMAL); PLATELET MORPHOLOGY NORMAL (NORMAL); SCAN/DIFF AUTO DIFF CONFIRMED
[2016-09-18] MEDS: D5-1/2 NS + KCL 20 MEQ INJ 1,000 ML IV SCH ×2 (08:59→21:05)
[2016-09-18] MEDS ORDERED: IRON SUCROSE INJ 200 MG in SODIUM CHLORIDE 0.9% INJ 100 ML IV SCH (09:00)
[2016-09-18] MEDS: SODIUM CHLORIDE 0.9% FLUSH 5 ML FLUSH FLUSH SCH ×2 (09:11→21:00)
--- NOTE | 2016-09-18 09:40 | HHI.PR ---
Subjective Remarks Follow-up for abdominal pain. The patient continues to complain of right lower quadrant abdominal pain. She reports no significant change overnight. / in severity. She states she tried some ice chips last night and had an episode of vomiting afterwards. She said she last tolerated oral intake on Thursday. She states her last BM was Thursday as well. She says she had a low-grade fever last night. Objective Vitals Vital Signs Date Time Temp Pulse Resp B/P Pulse Ox O2 Delivery O2 Flow Rate FiO2 09/18/16 08:13 99.0 80 18 110/63 99 09/18/16 04:53 97.8 84 18 119/84 96 09/17/16 22:25 12 09/17/16 19:22 98.1 75 18 94/53 96 09/17/16 12:00 98.4 89 16 103/58 100 I/O 09/17/16 09/17/16 09/17/16 09/18/16 09/18/16 09/18/16 07:00 15:00 23:00 07:00 15:00 23:00 Intake Total 500 ml 200 ml Balance 500 ml 200 ml Intake Oral 0 ml 0 ml IV Total 500 ml 200 ml # Voids 3 1 Result Diagram: 09/18/16 0608 09/18/16 0640 Imaging Last Impressions Abdomen/Pelvis CT 09/16/16 1756 Signed Impressions: Service Date/Time: Friday, September 16, 2016 19:35 - CONCLUSION: 1. Small amount of free fluid in the cul-de-sac. 2. IUD. 3. Unable to visualize the appendix. Art Agrawal Jr., MD Objective Remarks GENERAL: Well-developed well-nourished. In no acute distress. SKIN: Warm and dry. No lesions noted. HEENT: Normocephalic. Pupils equal and round. Mucous membranes pink and moist. CARDIOVASCULAR: Tachycardic rate and regular rhythm. No murmur appreciated. RESPIRATORY: No accessory muscle use. Clear to auscultation. Breath sounds equal bilaterally. GASTROINTESTINAL: Abdomen soft, non-tender, nondistended. Bowel sounds x4. MUSCULOSKELETAL: No obvious deformities. No clubbing or cyanosis. No edema. NEUROLOGICAL: Awake and alert. No focal neurological deficits. Moves upper and lower extremities spontaneously. Normal speech. PSYCHIATRIC: Appropriate mood and affect; insight and judgment normal. A/P Problem List: (1) Abdominal pain ICD Code: R10.9 Status: Acute (2) UTI (urinary tract infection) ICD Code: N39.0 Status: Acute Assessment and Plan 21-year-old female with history of asthma, bipolar, depression, migraines, presents with a 2 day history of abdominal pain Abdominal Pain: CT abd/pelvis showed small amount of free fluid in the cul-de- sac; unable to visualize the appendix. GC/Chlamydia PCRs negative, and recent IUD check by patient's OBGYN was unremarkable. Afebrile with no leukocytosis. Supportive care, Zofran prn. Oral [place] and IV Morphine prn pain. NPO with sips and chips, maintenance IVF with D5. General surgery consulted, no surgical issues noted, recommended GI evaluation. Consult to gastroenterology. Abnormal UA: UA with moderate leuks, possible UTI vs contaminants. No urinary symptoms, but empirically treat with IV Rocephin with lower abdominal pain. Monitor urine culture. Microcytic Anemia: Patient has history of anemia on previous visits however baseline around 10, currently Hgb 8.0. Iron studies showed iron deficiencies, started on Venofer. Hemoglobin stable overnight. Monitor CBC. Asthma: chronic, does not appear to be in exacerbation. Continue albuterol inhaler prn. DVT Prophylaxis: teds/SCDs Written by Jose C Murphy, acting as scribe for Dr. Connell on 09/18/16 at 09:35. The documentation accurately reflects the work performed [id number] by ok Dr. Connell on 09/18/16 at 09:35. Discharge Planning Disposition pending GI recommendations. Problem Qualifiers (1) Abdominal pain: Qualified Code: R10.31 - Right lower quadrant abdominal pain (2) UTI (urinary tract infection): Qualified Code: N30.00 - Acute cystitis without hematuria Jose C Murphy Sep 18, 2016 09:40 Kat Connell MD Sep 18, 2016 12:58
[2016-09-18 11:49] VITALS: BP 98/55; PULSE 65; RESP 18; TEMP 97.3; O2SAT 96
[2016-09-18] MEDS: ONDANSETRON HCL 4 MG/2 ML VIAL IVP PRN (11:54)
--- NOTE | 2016-09-18 13:08 | PD.CONS ---
HPI History of Present Illness This is a 21 year old who came to the ER for evaluation of abdominal pain. She started having nausea on Thursday. She states that this started after drinking a fruit smoothie, but could not get this down. She continued to have nausea with any drinking- almond milk, water, or juice. She gags with this, but did not actually vomit. She reports that she has had the nausea with any liquid intake. She reports that she did not have this with any po intake. SHe had a sweet tea and chicken wrap from [employer] and when she returned home, she went to move her bowels on Thursday and reports that she may have strained a little, but nothing significant. After moving her bowels, she started having RLQ pain. Initially, this felt like a menstrual cramp, but it became much more severe and constant. She took an Advil, but had no relief. She initially thought it was the Mirena that she had placed August 22 and therefore went to the INFORMATION ASSISTANT physician who placed this to have it evaluated and she said it was fine and referred her to the hospital for possible appendicitis. She went to the ER at [facility] and was still having pain at discharged, but it was somewhat controlled with pain meds. However, the pain has continued and therefore she came back to the hospital. She denies that the pain has any relation to food intake. She denies any fever or chills. She does not consider herself to have constipation, but states she does have to concentrate to move her bowels. She denies any diarrhea. She does not know if she has blood in her stool, as she does not look at it. She has never had this pain in the past. She last had her period about a week ago and does have spotting since having the Mirena placed. Of note, she states she is taking control pills with the Mirena because she wants to make sure she does not get . (Rosibel Carroll) PFSH Past Medical History Asthma Bipolar Depression Migraines Past Surgical History Abdominal hernia repair (Rosibel Carroll) Coded Allergies: Iodine (Verified Allergy, Severe, 09/16/16) Milk (Verified Allergy, Severe, GAS NAUSEA, 09/16/16) Medications Allergies Coded Allergies Type Severity Reaction Last Updated Verified Iodine Allergy Severe 09/16/16 Yes Milk Allergy Severe GAS NAUSEA 09/16/16 Yes Active Scripts Medications Dose Route/Sig Days Date Category Proventil Hfa 6.7 GM Inh (Albuterol Sulfate) 90 Mcg/Act Aer 2 Puff INH Q4-6H PRN 07/08/16 Reported Family History Mother with asthma Unknown father history, abusive, likely psych issues per the patient Social History Denies any tobacco or illicit drug use. Occasional alcohol use, maybe every other weekend (Rosibel Carroll) Review of Systems Constitutional: COMPLAINS OF: Fatigue, Chills, DENIES: Fever, Weight loss, Change in appetite Respiratory: DENIES: Cough, Shortness of breath Cardiovascular: DENIES: Chest pain Gastrointestinal: COMPLAINS OF: Abdominal pain, Constipation, Nausea, DENIES: Black stools, Bloody stools, Vomiting, Anorexia, Swelling of Abdomen, Heartburn , Hematemesis Integumentary: DENIES: Abnormal pigmentation Hematologic/lymphatic: DENIES: Bruising Neurologic: DENIES: Headache Psychiatric: DENIES: Confusion (Rosibel Carroll) GI Exam Vitals I&O Vital Signs Date Time Temp Pulse Resp B/P Pulse Ox O2 Delivery O2 Flow Rate FiO2 09/18/16 11:49 97.3 65 18 98/55 96 09/18/16 08:13 99.0 80 18 110/63 99 09/18/16 04:53 97.8 84 18 119/84 96 09/17/16 22:25 12 09/17/16 19:22 98.1 75 18 94/53 96 I/O 09/17/16 09/17/16 09/17/16 09/18/16 09/18/16 09/18/16 07:00 15:00 23:00 07:00 15:00 23:00 Intake Total 500 ml 200 ml Balance 500 ml 200 ml Intake Oral 0 ml 0 ml IV Total 500 ml 200 ml # Voids 3 1 Imaging Last Impressions Abdomen/Pelvis CT 09/16/16 8890 Signed Impressions: Service Date/Time: Friday, September 16, 2016 19:35 - CONCLUSION: 1. Small amount of free fluid in the cul-de-sac. 2. IUD. 3. Unable to visualize the appendix. Art Agrawal Jr., MD Laboratory Test 09/18/16 09/18/16 06:08 06:40 White Blood Count 4.7 TH/MM3 Red Blood Count 3.69 MIL/MM3 Hemoglobin 7.8 GM/DL Hematocrit 25.6 % Mean Corpuscular Volume 69.3 FL Mean Corpuscular Hemoglobin 21.2 PG Mean Corpuscular Hemoglobin 30.6 % Concent Red Cell Distribution Width 19.2 % Platelet Count 510 TH/MM3 Mean Platelet Volume 8.6 FL Neutrophils (%) (Auto) 48.5 % Lymphocytes (%) (Auto) 36.5 % Monocytes (%) (Auto) 12.6 % Eosinophils (%) (Auto) 1.2 % Basophils (%) (Auto) 1.2 % Neutrophils # (Auto) 2.3 TH/MM3 Lymphocytes # (Auto) 1.7 TH/MM3 Monocytes # (Auto) 0.6 TH/MM3 Eosinophils # (Auto) 0.1 TH/MM3 Basophils # (Auto) 0.1 TH/MM3 CBC Comment AUTO DIFF Differential Comment AUTO DIFF CONFIRMED Platelet Estimate HIGH Platelet Morphology Comment NORMAL Keratocytes OCC Sodium Level 138 MEQ/L Potassium Level 4.1 MEQ/L Chloride Level 110 MEQ/L Carbon Dioxide Level 15.3 MEQ/L Anion Gap 13 MEQ/L Blood Urea Nitrogen 6 MG/DL Creatinine 0.62 MG/DL Estimat Glomerular Filtration 146 ML/MIN Rate Random Glucose 42 MG/DL Calcium Level 7.6 MG/DL Total Bilirubin 0.5 MG/DL Aspartate Amino Transf 8 U/L (AST/SGOT) Alanine Aminotransferase 10 U/L (ALT/SGPT) Alkaline Phosphatase 35 U/L Total Protein 6.3 GM/DL Albumin 3.0 GM/DL Date/Time Procedure Status Source Growth 09/16/16 16:38 Urine Culture - Final Complete Urine Clean Catch 50-100,000 CFU/ML MIXED GRAM POSITIVE... Physical Examination HEENT: Normocephalic; atraumatic; no jaundice. Throat is clear. NECK: Neck is supple, no JVD, no lymphadenopathy. CHEST: CTA CARDIAC: RRR ABDOMEN: Soft, nondistended, RLQ tenderness; no hepatosplenomegaly; bowel sounds are present in all four quadrants. EXTREMITIES: No clubbing, cyanosis, or edema. SKIN: Normal; no rash; no jaundice. 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 (Rosibel Carroll) Assessment and Plan Plan ASSESSMENT: - RLQ Abdominal pain with associated nausea. Started having nausea on Thursday with liquids. Had sudden onset of "menstrual like cramps" in RLQ after eating a chicken wrap and sweet tea and moving her bowels Thursday. This has since been a moderate-severe pain in her RLQ. She was evaluated by INFORMATION ASSISTANT as outpatient because she recently had a Mirena placed on . She reports that her craft artist told her that this was fine and referred to the ER for evaluation for possible appendicitis. She was evaluated and then discharged but continued to have pain and therefore came to this ER for further evaluation. She has never had this pain in the past. Abdomen/Pelvis CT (09/16/16)-----> 1. Small amount of free fluid in the cul-de-sac. 2. IUD. 3. Unable to visualize the appendix. She last had her period about a week ago and does have spotting since having the Mirena placed. Of note, she states she is taking control pills with the Mirena because she wants to make sure she does not get . GI has been consulted to r/o GI etiology. S/P GS evaluation. INFORMATION ASSISTANT consulted. ? if combination of Mirena + oral contraceptives could be contributing to this. - Iron Deficiency Anemia. Iron 43, TIBC 462, Iron Saturation 93%. HH 7.8/ 25.6. Iron Transfusion. PLAN: - Plan for egd/colonoscopy - Obtain consents - Clear liquids - NPO after MN - Golytely prep - PPI - Supportive care - INFORMATION ASSISTANT evaluation - Supportive care - Further recommendations to follow based on results of above - Pt seen and examined by Dr. Clark and myself and this note is written on her behalf (Rosibel Carroll) Physician Comments seen, examined discussed with surgery and needle felt making machine operator, she improved after her IUD was removed -we will cancel egd/colon for now advance diet we will reevaluate in am (Alyson Clark MD) Rosibel Carroll Sep 18, 2016 13:08 Alyson Clark MD Sep 18, 2016 20:19
[2016-09-18] MEDS ORDERED: MORPHINE SULFATE 4 MG/ML INJ IV PUSH PRN (13:34)
[2016-09-18] MEDS ORDERED: PANTOPRAZOLE SODIUM 40 MG VIAL IV PUSH SCH (15:00)
[2016-09-18] MEDS ORDERED: PEG (High)/E-LYTE SOLN 4000 ML BTL PO ONE (16:00)
[2016-09-18 18:00] VITALS: BP 121/79; PULSE 80; RESP 18; O2SAT 95
[2016-09-18 19:20] VITALS: BP 128/68; PULSE 87; RESP 21; TEMP 98; O2SAT 98
--- NOTE | 2016-09-18 20:00 | HHI.PR ---
Subjective Subjective Notes Looks MUCH more comfortable since last evening. Hungry. Objective Vitals/I&O Vital Signs Date Time Temp Pulse Resp B/P Pulse Ox O2 Delivery O2 Flow Rate FiO2 09/18/16 18:00 80 18 121/79 95 09/18/16 11:49 97.3 09/17/16 03:30 Room Air Labs Laboratory Tests Test 09/18/16 09/18/16 06:08 06:40 White Blood Count 4.7 Red Blood Count 3.69 Hemoglobin 7.8 Hematocrit 25.6 Mean Corpuscular Volume 69.3 Mean Corpuscular Hemoglobin 21.2 Mean Corpuscular Hemoglobin 30.6 Concent Red Cell Distribution Width 19.2 Platelet Count 510 Mean Platelet Volume 8.6 Neutrophils (%) (Auto) 48.5 Lymphocytes (%) (Auto) 36.5 Monocytes (%) (Auto) 12.6 Eosinophils (%) (Auto) 1.2 Basophils (%) (Auto) 1.2 Neutrophils # (Auto) 2.3 Lymphocytes # (Auto) 1.7 Monocytes # (Auto) 0.6 Eosinophils # (Auto) 0.1 Basophils # (Auto) 0.1 CBC Comment AUTO DIFF Differential Comment AUTO DIFF CONFIRMED Platelet Estimate HIGH Platelet Morphology Comment NORMAL Keratocytes OCC Sodium Level 138 Potassium Level 4.1 Chloride Level 110 Carbon Dioxide Level 15.3 Anion Gap 13 Blood Urea Nitrogen 6 Creatinine 0.62 Estimat Glomerular Filtration 146 Rate Random Glucose 42 Calcium Level 7.6 Total Bilirubin 0.5 Aspartate Amino Transf 8 (AST/SGOT) Alanine Aminotransferase 10 (ALT/SGPT) Alkaline Phosphatase 35 Total Protein 6.3 Albumin 3.0 Date/Time Procedure Status Source Growth 09/16/16 16:38 Urine Culture - Final Complete Urine Clean Catch 50-100,000 CFU/ML MIXED GRAM POSITIVE... Radiology Last 48 hours Impressions Abdomen/Pelvis CT 09/16/16 1736 Signed Impressions: Service Date/Time: Friday, September 16, 2016 19:35 - CONCLUSION: 1. Small amount of free fluid in the cul-de-sac. 2. IUD. 3. Unable to visualize the appendix. Art Agrawal Jr., MD Lungs: Clear Abdomen: Non-distended, Non-tender A/P Assessment and Plan Abdominal pain much improved since IUD removed. Dr. Clark will cancel GI procedures planned. Advance diet. Likely able to D/C tomorrow. Advance diet. Luiz Manning MD Sep 18, 2016 20:00
[2016-09-18] MEDS: cefTRIAXone INJ 1,000 MG in SODIUM CHLORIDE 0.9% INJ 100 ML IV SCH (21:05)
--- NOTE | 2016-09-18 21:29 | PD.CONS ---
HPI Chief Complaint Pelvic pain Date Seen: Sep 18, 2016 Travel History International Travel<30 Days: No Contact w/Intl Traveler<30Days: No Known Affected Area: No History of Present Illness HPI This patient is a 21-year-old black female PCS who is not now and has a history of having an IUD Mirena placed at the end of July her doctor in [facility] the last several days the patient developed worsening pelvic pain and right sided pelvic pain. She denies fever chills vomiting but has positive nausea and says she's not eaten at all since Thursday with me 3 days ago. She's been in the hospital here for those 3 days and has she said she has not been eating due to to nausea and the pain Para: 4 : 4 Last Menstrual Period: Aug 21, 2016 History Obstetric History Obstetric History for twins Past Surgical History Narrative Surgical Social History Alcohol Use: No Tobacco Use: No Substance Abuse: No Allergies-Medications (Allergen,Severity, Reaction): Coded Allergies: Iodine (Verified Allergy, Severe, 09/16/16) Milk (Verified Allergy, Severe, GAS NAUSEA, 09/16/16) Home Meds Reported Medications Albuterol 6.7 GM Inh (Proventil Hfa 6.7 GM Inh)90 Mcg/Act Aer2 Puff INH Q4-6H PRN (SHORTNESS OF BREATH) #1 INHALER Ref 0 07/08/16 Discontinued Scripts Benzonatate 200 Mg [id number] Mg PO TID PRN (COUGH) #21 CAP Ref 0 Prov:Chacha Neal 07/08/16 Review of Systems General / Constitutional: No: Fever, Weight Gain, Chills, Other Eyes: No: Diploplia, Blurred Vision, Visual changes, Pain, Photophobia HENT: No: Headaches, Vertigo, Lightheadedness Cardiovascular: No: Irregular Rhythm, Chest Pain or Discomfort, Palpitations, Tachycardia, Syncope, Varicosities, Edema, Cyanosis Respiratory: No: Cough, Short of Breath, Other Gastrointestinal: Nausea, Abdominal Pain, No: Vomiting, Diarrhea Genitourinary: Pelvic Pain, No: Decreased Urinary Output, Oliguria Musculoskeletal: No: Limited ROM, Weakness, Cramping, Edema, Pain Skin: No Rash, No Itching, No Dryness, No Lumps, No Change in Pigmentation, No Change in Nails, No Alopecia, No Lesions Neurologic: No: Weakness, Dizziness, Syncope, Focal Abnormalities, Coordination Problem, Headache, Slurred Speech, Seizures Psychiatric: No: Depression, Suicidal Ideations, Homicidal Ideation Endocrine: No: Heat Intolerance, Cold Intolerance, Polydipsia, Polyuria, Other Physical Exam Narrative GENERAL: Well-nourished, well-developed patient. SKIN: Warm and dry. HEAD: Normocephalic and atraumatic. EYES: No scleral icterus. No injection or drainage. ENT: No nasal drainage noted. Mucous membranes pink. Airway patent. NECK: Supple, trachea midline. No JVD. CARDIOVASCULAR: Regular rate and rhythm without murmurs, gallops, or rubs. RESPIRATORY: Breath sounds equal bilaterally. No accessory muscle use. BREASTS: Bilateral exam showed no masses , no retractions, no nipple discharge. ABDOMEN/GI: Abdomen soft , bowel sounds present, no rebound, no guarding , 3 + pain to palpation of mid pelvis over C section scar and on R side no mass or rebound External Genitalia: intact and normal in appearance ] Cervix: [-]+ CMT , IUD string seen Dilatation: [0-] uterus AF ,nl size 3-4 + tender to palpation R adnexa 3 + tender no mass , L side benign [-] EXTREMITIES: No cyanosis or edema. BACK: Nontender without obvious deformity. No CVA tenderness. NEUROLOGICAL: Awake and alert. Motor and sensory grossly within normal limits. Five out of 5 muscle strength in all muscle groups. Normal speech. Data Data Orders Iron Sucrose Inj (Venofer Inj) (09/18/16 09:00) Comprehensive Metabolic Panel (09/18/16 06:00) Complete Blood Count With Diff (09/18/16 06:00) Consult Vascular Access Team (09/18/16 ) Vascular Poc Ultrasound (09/18/16 ) Consult Gastroenterology (09/18/16 ) Acetamin-Hydrocod 325-5 Mg ([place] 5-325 (09/18/16 08:30) D5-1/2 Ns + Kcl 20 Meq Inj (D5-1/2 Ns + (09/18/16 09:34) (Hub Use Only)Inp Phy Cons/Ref (09/18/16 ) ^ Special Diet Instructions (09/18/16 09:39) Consult Gynecology (09/18/16 ) (Hub Use Only)Inp Phy Cons/Ref (09/18/16 ) Bedside Glucose PADILLA.AC&HS (09/18/16 13:01) Morphine Inj (Morphine Inj) (09/18/16 13:34) Peg (High)/E-Lyte Liq (Colyte Liq) (09/18/16 16:00) Diet Clear Liquid (09/18/16 Dinner) Pantoprazole Inj (Protonix Inj) (09/18/16 15:00) Complete Blood Count With Diff (09/19/16 06:00) Basic Metabolic Panel (Bmp) (09/19/16 06:00) Genital Culture(C&S)(Gc)(Gbs) (09/18/16 18:28) Diet Heart Healthy (09/19/16 Breakfast) Us Pelvis Comp Economics Lecturer/Non-Preg (09/18/16 ) Labs Laboratory Tests Test 09/18/16 09/18/16 06:08 06:40 White Blood Count 4.7 Red Blood Count 3.69 Hemoglobin 7.8 Hematocrit 25.6 Mean Corpuscular Volume 69.3 Mean Corpuscular Hemoglobin 21.2 Mean Corpuscular Hemoglobin 30.6 Concent Red Cell Distribution Width 19.2 Platelet Count 510 Mean Platelet Volume 8.6 Neutrophils (%) (Auto) 48.5 Lymphocytes (%) (Auto) 36.5 Monocytes (%) (Auto) 12.6 Eosinophils (%) (Auto) 1.2 Basophils (%) (Auto) 1.2 Neutrophils # (Auto) 2.3 Lymphocytes # (Auto) 1.7 Monocytes # (Auto) 0.6 Eosinophils # (Auto) 0.1 Basophils # (Auto) 0.1 CBC Comment AUTO DIFF Differential Comment AUTO DIFF CONFIRMED Platelet Estimate HIGH Platelet Morphology Comment NORMAL Keratocytes OCC Sodium Level 138 Potassium Level 4.1 Chloride Level 110 Carbon Dioxide Level 15.3 Anion Gap 13 Blood Urea Nitrogen 6 Creatinine 0.62 Estimat Glomerular Filtration 146 Rate Random Glucose 42 Calcium Level 7.6 Total Bilirubin 0.5 Aspartate Amino Transf 8 (AST/SGOT) Alanine Aminotransferase 10 (ALT/SGPT) Alkaline Phosphatase 35 Total Protein 6.3 Albumin 3.0 Date/Time Procedure Status Source Growth 09/16/16 16:38 Urine Culture - Final Complete Urine Clean Catch 50-100,000 CFU/ML MIXED GRAM POSITIVE... MDM Interpretation(s) This patient is a 21-year-old black female para for previous who has recently had an IUD placed approximately a month ago by her MANUFACTURING INSPECTOR doctor in [place] and after that she began having pelvic pain and is been here for the last 3 days with severe pelvic pain abdominal pain work up negative so far and negative lab result, normal CT scan normal ,and an ultrasound is pending , the only significant findings are on pelvic exam where she has significant pain to palpation the uterus and right adnexa no mass noted, speculum exam I can see the IUD string , there is positive cervical motion tenderness. It is my opinion her diagnosis is metritis related to the IUD as no other obvious source of her problem and her exam lends itself to a MANUFACTURING INSPECTOR issue being the cause the pain Plan I recommend pulling the IUD out at this stage and this was done in the emergency room ring forceps used to grasp the string and IUD came out easily was sent for culture for predominant organism. I recommend the patient received a gram of Rocephin IM or IV and a 2 week course of oral doxycycline 100 mg twice a day. She was advised to seek out alternative control and informed the pill or Depo-Provera on the short-term in 6 months if she is much improved and is motivated to try another IUD that could be done but if she could find an alternate control that would be better in this case she says she got here tubes tied and I coated pursue that avenue as, far as she can Admitting diagnosis: right low quadrant abdominal pain. UTI. Diagnosis: metritis fromIUD Disposition: 01 DISCHARGE HOME Condition: Stable Matt Gusman II, MD Sep 18, 2016 21:29
--- NOTE | 2016-09-18 21:51 | RADRPT ---
EXAM DATE/TIME: 09/18/2016 20:07 [facility] COMPARISON: No previous studies available for comparison. INDICATIONS : Pelvic pain. MEDICAL HISTORY : Hernia, umbilical. Migraines. Asthma. Bulimia. Abdominal pain. Bipolar. Depression. SURGICAL HISTORY : Umbilical hernia repair. section. ENCOUNTER: Initial ACUITY: 4-6 days PAIN SCORE: 7/10 LOCATION: Bilateral pelvis MEASUREMENTS: UTERUS: 9.2 x 4.8 x 4.6 cm ENDOMETRIAL STRIPE: 4 mm RIGHT OVARY: 5.4 x 3.8 x 2.2 cm LEFT OVARY: 2.5 x 2.5 x 2.9 cm FINDINGS: UTERUS: The myometrium has homogeneous echotexture without mass. RIGHT OVARY: 4 cm cyst LEFT OVARY: Ovary contains no mass or significant cystic lesion. MISCELLANEOUS: Small volume of free fluid CONCLUSION: Right ovarian cysts and small volume of free pelvic fluid. Ignacio Bauman MD on September 18, 2016 at 21:46 Board Certified Radiologist. This report was verified electronically.
[2016-09-19] VITALS: BP 98/58; PULSE 64; RESP 21; TEMP 98.7; O2SAT 97
[2016-09-19 04:14] VITALS: BP 101/50; PULSE 67; RESP 18; TEMP 98; O2SAT 97
[2016-09-19 05:10] LABS: AUTOMATED NEUTROPHIL # 1.5 TH/MM3 (1.8-7.7); EOSINOPHIL # 0.1 TH/MM3 (0-0.4); EOSINOPHIL % 3.4 % (0.0-4.0); HEMATOCRIT 25.4 % (35.0-46.0); LYMPH % 37.4 % (9.0-44.0); LYMPHOCYTE # 1.4 TH/MM3 (1.0-4.8); MEAN CELL VOLUME 66.5 FL (80.0-100.0); MEAN CORPUSCULAR HEMOGLOBIN 21.5 PG (27.0-34.0); MEAN CORPUSCULAR HGB CONC 32.4 % (32.0-36.0); MONO % 18.2 % (0.0-8.0); PLATELET COUNT 537 TH/MM3 (150-450); RED BLOOD COUNT 3.83 MIL/MM3 (4.00-5.30); RED CELL DISTRIBUTION WIDTH 19.4 % (11.6-17.2); WHITE BLOOD COUNT 3.8 TH/MM3 (4.0-11.0)
[2016-09-19 05:27] LABS: HEMO FLAGS AUTO DIFF
[2016-09-19 05:35] LABS: BICARBONATE 21.6 MEQ/L (21.0-32.0); POTASSIUM 3.8 MEQ/L (3.5-5.1)
[2016-09-19] MEDS ORDERED: cefTRIAXone INJ 1,000 MG in SODIUM CHLORIDE 0.9% INJ 100 ML IV ONE (07:30)
[2016-09-19 07:42] LABS: PLATELET ESTIMATE SMEAR NORMAL (NORMAL); PLATELET MORPHOLOGY NORMAL (NORMAL)
[2016-09-19 07:43] LABS: TARGET CELLS 1+ (NORMAL)
[2016-09-19 07:44] LABS: OVALOCYTES 1+ (NORMAL)
[2016-09-19 07:45] LABS: SCAN/DIFF AUTO DIFF CONFIRMED
--- NOTE | 2016-09-19 07:52 | HHI.PR ---
Subjective Subjective Notes Uneventful night; tolerating diet. No abdominal pain. Objective Vitals/I&O Vital Signs Date Time Temp Pulse Resp B/P Pulse Ox O2 Delivery O2 Flow Rate FiO2 09/19/16 04:14 98.0 67 18 101/50 97 09/17/16 03:30 Room Air Labs Laboratory Tests Test 09/19/16 09/19/16 04:41 04:42 White Blood Count 3.8 Red Blood Count 3.83 Hemoglobin 8.2 Hematocrit 25.4 Mean Corpuscular Volume 66.5 Mean Corpuscular Hemoglobin 21.5 Mean Corpuscular Hemoglobin 32.4 Concent Red Cell Distribution Width 19.4 Platelet Count 537 Mean Platelet Volume 8.0 Neutrophils (%) (Auto) 40.0 Lymphocytes (%) (Auto) 37.4 Monocytes (%) (Auto) 18.2 Eosinophils (%) (Auto) 3.4 Basophils (%) (Auto) 1.0 Neutrophils # (Auto) 1.5 Lymphocytes # (Auto) 1.4 Monocytes # (Auto) 0.7 Eosinophils # (Auto) 0.1 Basophils # (Auto) 0.0 CBC Comment AUTO DIFF Differential Comment AUTO DIFF CONFIRMED Platelet Estimate NORMAL Platelet Morphology Comment NORMAL Target Cells 1+ Ovalocytes 1+ Sodium Level 141 Potassium Level 3.8 Chloride Level 111 Carbon Dioxide Level 21.6 Anion Gap 8 Blood Urea Nitrogen 4 Creatinine 0.54 Estimat Glomerular Filtration 171 Rate Random Glucose 98 Calcium Level 7.9 Date/Time Procedure Status Source Growth 09/18/16 19:30 Genital Culture Received Genital Intra Uterine Device Pending 09/16/16 16:38 Urine Culture - Final Complete Urine Clean Catch 50-100,000 CFU/ML MIXED GRAM POSITIVE... Radiology Last 48 hours Impressions Abdomen/Pelvis CT 09/16/16 7389 Signed Impressions: Service Date/Time: Friday, September 16, 2016 19:35 - CONCLUSION: 1. Small amount of free fluid in the cul-de-sac. 2. IUD. 3. Unable to visualize the appendix. Art Agrawal Jr., MD Lungs: Clear Abdomen: Non-distended, Non-tender A/P Assessment and Plan Abdominal pain resolved since IUD removed. D/C ok per surgery service. Will sign off. No need for follow up. Luiz Manning MD Sep 19, 2016 07:52
[2016-09-19] MEDS: SODIUM CHLORIDE 0.9% FLUSH 5 ML FLUSH FLUSH SCH (09:00)
[2016-09-19] MEDS ORDERED: DOXYCYCLINE HYCLATE 100 MG CAP PO SCH (09:00)
--- NOTE | 2016-09-19 09:18 | HHI.PR ---
Subjective Remarks Follow-up for abdominal pain. The patient feels much better today after having her IUD removed yesterday. She's been tolerating diet overnight. She denies any nausea, vomiting, diarrhea, aspiration, abdominal pain. Objective Vitals Vital Signs Date Time Temp Pulse Resp B/P Pulse Ox O2 Delivery O2 Flow Rate FiO2 09/19/16 04:14 98.0 67 18 101/50 97 09/19/16 00:00 98.7 64 21 98/58 97 09/18/16 19:20 98.0 87 21 128/68 98 09/18/16 18:00 80 18 121/79 95 09/18/16 11:49 97.3 65 18 98/55 96 I/O 09/18/16 09/18/16 09/18/16 09/19/16 09/19/16 09/19/16 07:00 15:00 23:00 07:00 15:00 23:00 Intake Total 200 ml 1200 ml Balance 200 ml 1200 ml Intake Oral 0 ml 500 ml IV Total 200 ml 700 ml # Voids 1 4 Result Diagram: 09/19/16 0441 09/19/16 0442 Imaging Last Impressions Pelvis Ultrasound 09/18/16 0000 Signed Impressions: Service Date/Time: August 20:07 - CONCLUSION: Right ovarian cysts and small volume of free pelvic fluid. Ignacio Bauman MD Abdomen/Pelvis CT 09/16/16 1756 Signed Impressions: Service Date/Time: Friday, September 16, 2016 19:35 - CONCLUSION: 1. Small amount of free fluid in the cul-de-sac. 2. IUD. 3. Unable to visualize the appendix. Art Agrawal Jr., MD Objective Remarks GENERAL: Well-developed well-nourished. In no acute distress. SKIN: Warm and dry. No lesions noted. HEENT: Normocephalic. Pupils equal and round. Mucous membranes pink and moist. CARDIOVASCULAR: Tachycardic rate and regular rhythm. No murmur appreciated. RESPIRATORY: No accessory muscle use. Clear to auscultation. Breath sounds equal bilaterally. GASTROINTESTINAL: Abdomen soft, non-tender, nondistended. Bowel sounds x4. MUSCULOSKELETAL: No obvious deformities. No clubbing or cyanosis. No edema. NEUROLOGICAL: Awake and alert. No focal neurological deficits. Moves upper and lower extremities spontaneously. Normal speech. PSYCHIATRIC: Appropriate mood and affect; insight and judgment normal. A/P Problem List: (1) Abdominal pain ICD Code: R10.9 Status: Acute (2) UTI (urinary tract infection) ICD Code: N39.0 Status: Acute Assessment and Plan 21-year-old female with history of asthma, bipolar, depression, migraines, presents with a 2 day history of abdominal pain Abdominal Pain: CT abd/pelvis showed small amount of free fluid in the cul-de- sac; unable to visualize the appendix. GC/Chlamydia PCRs negative. General surgery and GI were consulted, felt the issue was more gynecological. FRONTLOAD DRIVER consulted, discussed with Dr. Gusman, felt symptoms were related to infected IUD. IUD removed and sent for culture. Give IV Rocephin 1 g 1 and course of doxycycline for 14 days per ELECTION JUDGE recommendations. Supportive care, Zofran prn. Oral Empire and IV Morphine prn pain. Diet as tolerated. DC IVF. Outpatient ELECTION JUDGE follow-up. Abnormal UA: UA with moderate leuks, possible UTI vs contaminants. Urine culture with mixed growth, no acute ear infection. Microcytic Anemia: Patient has history of anemia on previous visits however baseline around 10, currently Hgb 8.0. Iron studies showed iron deficiencies, given IV Venofer. Hemoglobin stable overnight. Continue oral iron supplement. Asthma: chronic, does not appear to be in exacerbation. Continue albuterol inhaler prn. DVT Prophylaxis: teds/SCDs Written by Jose C Murphy, acting as scribe for Dr. Connell on 09/19/16 at 09:17. The documentation accurately reflects the work performed [id number] by me Dr. Connell on 09/19/16 at 09:17. Discharge Planning Discharge patient to home Condition on discharge: Improved Regular Diet as tolerated Irregular activity Rx written: Doxycycline, ferrous sulfate Follow-up with primary care physician and gynecology Problem Qualifiers (1) Abdominal pain: Qualified Code: R10.31 - Right lower quadrant abdominal pain (2) UTI (urinary tract infection): Qualified Code: N30.00 - Acute cystitis without hematuria Jose C Murphy Sep 19, 2016 09:18 Kat Connell MD Sep 19, 2016 13:49
[2016-09-19] MEDS ORDERED: DOXY100C PO (09:21)
[2016-09-19] MEDS ORDERED: FERR325T PO (09:21)
--- NOTE | 2016-09-19 09:22 | HHI.DS ---
Discharge Summary Admission Date Sep 16, 2016 at 21:15 Discharge Date: Sep 19, 2016 Admitting Diagnosis right low quadrant abdominal pain. UTI. (1) Abdominal pain ICD Code: R10.9 Diagnosis: Principal (2) Infection associated with intrauterine device (IUD) ICD Code: T83.69XA Diagnosis: Principal Procedures IUD removal 09/18 Brief History - From Admission 21-year-old female with history of asthma, bipolar, depression, migraines, presents with a 2 day history of abdominal pain. Patient reports on Thursday she had a BM described has formed but somewhat hard, brown stool, then immediately after felt diffuse lower abdominal cramping that was not consistent with her menstrual cycle cramps. LMP 08/29. Denies any vaginal bleeding/ discharge. She took ibuprofen however this did not relieve the pain therefore she presented to the ER on 09/15, workup was initiated however she LWBS due to the long wait. She then went to her OBGYN who checked her Mirena and told her everything looked normal. She then went to [facility] later that evening on 09/15 because the pain got worse and started to radiate to the right lower quadrant. She was sent home from [facility] at 2am on 09/16 under instructions to return to the ED if the pain does not resolve over the next 12 hours as she may have "early appendicitis". The pain continued, described as constant intense cramping with occasional sharp pains rated 7/10, much worse with ambulation, associated with poor appetite, some nausea but no vomiting, therefore she presented back to the ED last night 09/16. She denies any fevers or chills. Upon arrival, CT abd/pelvis showed small amount of free fluid in the cul-de-sac; unable to visualize the appendix. GC/Chlamydia PCRs negative. UA with moderate leuks, possible UTI, however the patient denies any dysuria, increased urinary frequency/urgency. CBC with anemia, Hgb 8.1, no leukocytosis. The patient was admitted with surgical consultation pending. CBC/BMP: 09/19/16 0441 09/19/16 0442 Significant Findings Laboratory Tests Test 09/16/16 09/17/16 09/18/16 09/18/16 16:38 03:39 06:08 06:40 Red Blood Count 3.80 MIL/MM3 3.81 MIL/MM3 3.69 MIL/MM3 (4.00-5.30) (4.00-5.30) (4.00-5.30) Hemoglobin 8.1 GM/DL 8.0 GM/DL 7.8 GM/DL (11.6-15.3) (11.6-15.3) (11.6-15.3) Hematocrit 26.0 % 25.8 % 25.6 % (35.0-46.0) (35.0-46.0) (35.0-46.0) Mean Corpuscular Volume 68.4 FL 67.6 FL 69.3 FL (80.0-100.0) (80.0-100.0) (80.0-100.0) Mean Corpuscular Hemoglobin 21.4 PG 21.0 PG 21.2 PG (27.0-34.0) (27.0-34.0) (27.0-34.0) Mean Corpuscular Hemoglobin 31.4 % 31.0 % 30.6 % Concent (32.0-36.0) (32.0-36.0) (32.0-36.0) Red Cell Distribution Width 18.8 % 19.0 % 19.2 % (11.6-17.2) (11.6-17.2) (11.6-17.2) Platelet Count 524 TH/MM3 490 TH/MM3 510 TH/MM3 (150-450) (150-450) (150-450) Monocytes (%) (Auto) 10.5 % 11.9 % 12.6 % (0.0-8.0) (0.0-8.0) (0.0-8.0) Platelet Estimate HIGH (NORMAL) HIGH (NORMAL) HIGH (NORMAL) Urine Turbidity HAZY (CLEAR) Urine Ketones 40 mg/dL (NEG) Urine Occult Blood TRACE (NEG) Urine Leukocyte Esterase MOD (NEG) Urine WBC 15 /hpf (0-5) Potassium Level 3.4 MEQ/L (3.5-5.1) Chloride Level 110 MEQ/L 110 MEQ/L 110 MEQ/L (98-107) (98-107) (98-107) Calcium Level 8.3 MG/DL 7.9 MG/DL 7.6 MG/DL (8.5-10.1) (8.5-10.1) (8.5-10.1) Lymphocytes (%) (Auto) 44.2 % (9.0-44.0) Keratocytes OCC (NORMAL) OCC (NORMAL) Random Glucose 64 MG/DL 42 MG/DL (74-106) (74-106) Iron Level 43 MCG/DL (50-170) Total Iron Binding Capacity 462 MCG/DL (250-450) Percent Iron Saturation 9.3 % (20-50) Carbon Dioxide Level 15.3 MEQ/L (21.0-32.0) Blood Urea Nitrogen 6 MG/DL (7-18) Aspartate Amino Transf 8 U/L (15-37) (AST/SGOT) Alkaline Phosphatase 35 U/L (45-117) Total Protein 6.3 GM/DL (6.4-8.2) Albumin 3.0 GM/DL (3.4-5.0) Test 09/19/16 09/19/16 04:41 04:42 White Blood Count 3.8 TH/MM3 (4.0-11.0) Red Blood Count 3.83 MIL/MM3 (4.00-5.30) Hemoglobin 8.2 GM/DL (11.6-15.3) Hematocrit 25.4 % (35.0-46.0) Mean Corpuscular Volume 66.5 FL (80.0-100.0) Mean Corpuscular Hemoglobin 21.5 PG (27.0-34.0) Red Cell Distribution Width 19.4 % (11.6-17.2) Platelet Count 537 TH/MM3 (150-450) Monocytes (%) (Auto) 18.2 % (0.0-8.0) Neutrophils # (Auto) 1.5 TH/MM3 (1.8-7.7) Target Cells 1+ (NORMAL) Ovalocytes 1+ (NORMAL) Chloride Level 111 MEQ/L (98-107) Blood Urea Nitrogen 4 MG/DL (7-18) Calcium Level 7.9 MG/DL (8.5-10.1) Imaging Last Impressions Pelvis Ultrasound 09/18/16 0000 Signed Impressions: Service Date/Time: August 20:07 - CONCLUSION: Right ovarian cysts and small volume of free pelvic fluid. Ignacio Bauman MD Abdomen/Pelvis CT 09/16/16 1756 Signed Impressions: Service Date/Time: Friday, September 16, 2016 19:35 - CONCLUSION: 1. Small amount of free fluid in the cul-de-sac. 2. IUD. 3. Unable to visualize the appendix. Art Agrawal Jr., MD PE at Discharge GENERAL: Well-developed well-nourished. In no acute distress. SKIN: Warm and dry. No lesions noted. HEENT: Normocephalic. Pupils equal and round. Mucous membranes pink and moist. CARDIOVASCULAR: Tachycardic rate and regular rhythm. No murmur appreciated. RESPIRATORY: No accessory muscle use. Clear to auscultation. Breath sounds equal bilaterally. GASTROINTESTINAL: Abdomen soft, non-tender, nondistended. Bowel sounds x4. MUSCULOSKELETAL: No obvious deformities. No clubbing or cyanosis. No edema. NEUROLOGICAL: Awake and alert. No focal neurological deficits. Moves upper and lower extremities spontaneously. Normal speech. PSYCHIATRIC: Appropriate mood and affect; insight and judgment normal. Hospital Course 21-year-old female with history of asthma, bipolar, depression, migraines, presents with a 2 day history of abdominal pain Abdominal Pain: CT abd/pelvis showed small amount of free fluid in the cul-de- sac; unable to visualize the appendix. GC/Chlamydia PCRs negative. General surgery and GI were consulted, felt the issue was more gynecological. PRODUCTION [employer] OPERATOR consulted, discussed with Dr. Gusman, felt symptoms were related to infected IUD. IUD removed and sent for culture. Given IV Rocephin 1 g 1 and course of doxycycline for 14 days per [employer] recommendations. Supportive care, Zofran prn. Oral [place] and IV Morphine prn pain. Diet as tolerated. S/P IVF. Outpatient [employer] follow-up. Abnormal UA: UA with moderate leuks, possible UTI vs contaminants. Urine culture with mixed growth, no acute urine infection. Microcytic Anemia: Patient has history of anemia on previous visits however baseline around 10, currently Hgb 8.0. Iron studies showed iron deficiencies, given IV Venofer. Hemoglobin stable overnight. Continue oral iron supplement. Asthma: chronic, does not appear to be in exacerbation. Continue albuterol inhaler prn. Pt Condition on Discharge: Stable Discharge Disposition: Discharge Home Discharge Time: > 30 minutes Discharge Instructions DIET: Follow Instructions for: As Tolerated, No Restrictions Activities you can perform: Regular-No Restrictions Follow up Referrals: PRODUCTION LINE OPERATOR - 1 Week PCP Follow-up - 1 Week New Medications: Doxycycline Hyclate (Doxycycline Hyclate) 100 Mg Cap 100 MG PO BID Infection #13 CAP Ferrous Sulfate (Ferrous Sulfate) 325 Mg Tab 325 MG PO DAILY low iron anemia #30 TAB Continued Medications: Albuterol 6.7 GM Inh (Proventil Hfa 6.7 GM Inh) 90 Mcg/Act Aer 2 PUFF INH Q4-6H PRN SHORTNESS OF BREATH #1 Ref 0 INHALER Additional Information Written by Jose C Murphy, acting as scribe for Dr. Connell on 09/19/16 at 09:30. The documentation accurately reflects the work performed [id number] by ok Dr. Connell on 09/19/16 at 09:30. Jose C Murphy Sep 19, 2016 09:22 Kat Connell MD Sep 19, 2016 18:41
[2016-09-19 11:53] VITALS: BP 122/62; PULSE 104; RESP 18; O2SAT 95
[2016-09-20] MEDS ORDERED: FERROUS SULFATE 325 MG (65 MG ELEMENTAL IRON) TAB PO SCH (09:00)
== END 2016-09-19 13:55 | disposition home or self-care (01) ==
LOC: NEPD 15:38 → NEDA 21:15 → NEDH 09-17 01:18 → NEPGCP 09-17 04:02
PROVIDERS: ADMIT Hospitalist; ATTEND Hospitalist
DX: R10.31 Right lower quadrant pain (principal); T83.69XA Infection and inflammatory reaction due to other prosthetic device, implant and graft in genital tract, initial encounter; D50.9 Iron deficiency anemia, unspecified; N71.9 Inflammatory disease of uterus, unspecified; N30.00 Acute cystitis without hematuria; F31.9 Bipolar disorder, unspecified; K08.89 Other specified disorders of teeth and supporting structures; J45.909 Unspecified asthma, uncomplicated
CPT/HCPCS: 74176; 76856; 80048; 80053; 81001; 82948; 83540; 83550; 84703; 85025; 85610; 85730; 87070; 87086; 87491; 87591; 96374; 96375; 99285; C9113; G0378; J0696; J1756; J2270; J2405; J3480; J7030; Q9963; 76937